=== PATIENT | male | born 1965 | race Caucasian/White ===

== ENCOUNTER → 2023-12-23 14:06 | Outpatient (BNVA) | payer MEDICAID, SELFPAY | PROVIDERS: Visit Provider Orthopaedic Surgery | DX: M54.9 Dorsalgia, unspecified (principal); Z76.89 Persons encountering health services in other specified circumstances | CPT/HCPCS: 36415; 80053; 83036; 85025; 99204 ==

== ENCOUNTER → 2024-01-07 10:15 | Outpatient (BNVA) | payer MEDICAID, SELFPAY | PROVIDERS: Visit Provider Family Medicine | DX: Z01.818 Encounter for other preprocedural examination (principal) | CPT/HCPCS: 81003; 93005 ==

== ENCOUNTER 2024-01-10 07:52 | Day surgery (SDC) | payer MEDICAID, SELFPAY ==
[2024-01-10] VITALS (12 sets, daily range): BP systolic 146–160; BP diastolic 78–101; PULSE 70–81; RESP 16–22; TEMP 36.5–36.9; O2SAT 92–99; BMI 25.7
--- NOTE | 2024-01-10 | XR_ITS ---
WS: [id number] XR lumbar spine 2-3V* [id number] REASON FOR EXAM: IVANIA PICS FINDINGS: Dorsal column stimulator which extends posteriorly in the midline in the thoracic spinal canal from T 11 to mid T8. XR/XR lumbar spine 2-3V* [id number] IMPRESSION: Dorsal column stimulator placement with appropriate position.
[2024-01-10] MEDS: sodium chloride 0.9% 1,000 ML 30 ML IV (08:47)
[2024-01-10 08:49] LABS: Glucose Point of Care 172 mg/dL (70-110)
[2024-01-10] MEDS: famotidine 20 mg/2 mL INJ IVP (08:56)
--- NOTE | 2024-01-10 09:03 | ANES.PREANE2 ---
Pre-Anesthetic Assessment Height/Weight: Height 1.83 m Weight 86.183 kg Temp Pulse Resp BP Pulse Ox O2 Del Method 98.4 F 75 18 158/101 99 Room Air 01/10/24 08:22 01/10/24 08:22 01/10/24 08:22 01/10/24 08:22 01/10/24 08:22 01/10/24 08:28 Preop Diagnosis: Lumbar stenosis with neurogenic claudication Operation Date: 01/10/24 09:35 Proposed Procedures p Paddle Electrode Placement(Not Applicable) - Drew Crowe DO s Spinal Cord Stimulator Placement(Not Applicable) - Drew Crowe DO Familial anesthetic complications: None Was Beta Arias taken within 24 hours: Yes Was Clonidine taken within 24 hours: N/A Last intake: Intake Last Liquid Date 01/09/24 Last Liquid Time 19:00 Last Solid Date 01/09/24 Last Solid Time 19:00 Social No alcohol and No tobacco Exam alert, oriented x 3, clear to auscultation bilaterally and regular rate & rhythm Airway Mallampati: Class II Dentition: full CV/HEM Coronary Artery Disease (PCI 2021) and Hypertension Metabolic Diabetes Mellitus and Hyperlipidemia Neuropsych Neuropathy Anesthetic Plan ASA status: 3 Anesthesia: General Risk of > 500 ml blood loss (7ml/kg in children): No Medications/Allergies Home Medications Medication Instructions Recorded Confirmed Last Taken Type albuterol sulfate 90 mcg/actuation 2 puff inhalation Q6H PRN sob 12/23/23 01/07/24 Unknown History aerosol inhaler amitriptyline 50 mg tablet 50 mg PO DAILY 12/23/23 01/07/24 01/05/24 History amlodipine 10 mg tablet 10 mg PO DAILY 12/23/23 01/07/24 01/06/24 History blood-glucose sensor (Dexcom G7 12/23/23 12/23/23 Unknown History Sensor device) carvedilol 25 mg tablet 25 mg PO Q12H 12/23/23 01/07/24 01/10/24 History clonidine HCl 0.1 mg tablet 0.1 mg PO TID 12/23/23 01/07/24 Unknown History clopidogrel 75 mg tablet 75 mg PO DAILY 12/23/23 01/07/24 01/02/24 History evolocumab 140 mg/mL subcutaneous 140 mg SUBCUT .[id number] 12/23/23 01/07/24 01/05/24 History pen injector (Susan Frida) hydralazine 25 mg tablet 25 mg PO TID 12/23/23 01/07/24 01/06/24 History insulin aspart U-100 100 unit/mL 10 unit SUBCUT TID 12/23/23 01/07/24 01/06/24 History subcutaneous solution isosorbide mononitrate 30 mg 30 mg PO DAILY 12/23/23 01/07/24 01/06/24 History tablet,extended release 24 hr methocarbamol 500 mg tablet 500 mg PO TID 12/23/23 01/07/24 01/06/24 History nitroglycerin 0.4 mg sublingual 0.4 mg sublingual Q5M PRN Chest 12/23/23 01/07/24 Unknown History tablet Pain omeprazole 20 mg capsule,delayed 20 mg PO DAILY 12/23/23 01/07/24 01/06/24 History release pregabalin 100 mg capsule 100 mg PO TID 12/23/23 01/07/24 01/06/24 History tamsulosin 0.4 mg capsule 0.4 mg PO DAILY 12/23/23 01/07/24 01/06/24 History tramadol 50 mg tablet 50 mg PO Q8H PRN Pain 12/23/23 01/07/24 01/06/24 History trazodone 100 mg tablet 100 mg PO DAILY 12/23/23 01/07/24 01/05/24 History cholecalciferol (vitamin D3) 50 50 mcg PO DAILY 01/06/24 01/07/24 01/06/24 History mcg (2,000 unit) tablet (Vitamin D3) insulin glargine 100 unit/mL (3 35 unit SUBCUT QPM 01/06/24 01/07/24 01/05/24 History mL) subcutaneous pen (Lantus Solostar U-100 Insulin) [id number]-dsqhds 1 tab PO DAILY 01/06/24 01/07/24 01/06/24 History tablet (Multivitamin 50 Plus tablet) aspirin 81 mg tablet,delayed 81 mg PO DAILY 01/07/24 01/07/24 Unknown History release vitamin B complex 1 cap PO DAILY 01/07/24 01/07/24 Unknown History Allergies Allergy/AdvReac Type Severity Reaction Status Date / Time codeine Allergy Intermediate ADR-Itching Verified 01/07/24 10:58 [From Tylenol-Codeine] hydrocodone Allergy Intermediate ADR-Itching Verified 01/07/24 10:58 Orotbwz-YPP-JlO Reductase Allergy ADR-Itching Verified 01/07/24 10:58 Inhibitor Current Medications Generic Name Dose Route Start Last Admin Trade Name Freq PRN Reason Stop Dose Admin Sodium Chloride 1,000 mls @ 30 mls/hr 01/10/24 08:00 01/10/24 08:47 Sodium Chloride 0.9% IV 01/11/24 07:59 30 mls/hr .Q24H MANNY Administration PFSH Anesthesia Social History Smoking and tobacco/nicotine status: never used tobacco/nicotine Data Anesthesia Cardiac Studies: No Data to Display
[2024-01-10] MEDS: fentaNYL 50 mcg/mL INJ 2mL IVP ×3 (09:06→12:03)
--- NOTE | 2024-01-10 09:40 | W.PM.OPSUD ---
Surgery/Procedure H&P Update DATE OF PROCEDURE: January 10, 2024 DATE H&P PERFORMED: 01/07/24 H&P UPDATE INFORMATION: I have reviewed H&P completed within last 30 days, I have examined patient prior to procedure and No changes to prior documentation PREOP DIAGNOSIS: Lumbar stenosis with neurogenic claudication PLANNED PROCEDURE: Operation Date: 01/10/24 09:35 Proposed Procedures p Paddle Electrode Placement(Not Applicable) - Drew Crowe DO s Spinal Cord Stimulator Placement(Not Applicable) - Drew Crowe DO
[2024-01-10] MEDS: ceFAZolin 2,000 mg SDV 2000 MG IVP (10:06)
[2024-01-10] MEDS: lidocaine-epi 1% 20 mL INJ INJECTION (11:03)
--- NOTE | 2024-01-10 11:52 | P.OP_ITS ---
Operative Report Date of procedure: January 10, 2024 Pre-op diagnosis: Lumbar stenosis with neurogenic claudication Post-op diagnosis: same Procedure done: 1. Neurostimulator paddle placement with laminectomy 2. Neurostimulator generator placement Surgeon: Drew Crowe DO Estimated blood loss (mL): 10 Procedure: 1. Neurostimulator paddle placement with laminectomy 2. Neurostimulator generator placement Patient brought the op suite after undergoing anesthesia placed in the prone po sition. All areas impingement well-padded. Patient was then prepped and draped normal sterile fashion. Skin incisions made over the T10-11 level. Subperiosteal dissection was made out to the transverse processes of T10-T11 bilaterally. Retractors were placed. Microscope was brought in. Rongeur bit down the interspinous ligament. As well as part of the T10 spinous process. Laminectomy was performed with a high-speed bur curved curettes and Kerrison rongeurs. Ligamentum flavum was taken down with the curved curette and ligamentum flavum. The hockey-stick passer was used to make a path. And then the neurostimulator paddle was slid up to the T8 body. This confirmed number C- arm guidance on both AP lateral fluoroscopy. Wires were sutured into the spinous process of T11. Next attention was made to the battery pocket. This was done by making incision during a subcu and undermining to allow for placement the battery. Once the pocket was made in the wire passer was slid from the battery pouch to the laminectomy site. The wires were passed and then connected to the battery and was found to be working well. Battery was then placed into the pouch. On the left flank. And wound was closed with 2-0 Vicryl and Monocryl suture. Sterile dressings were applied the laminectomy site was closed with 0 Vicryl 2-0 Vicryl and Monocryl suture. Sterile dressings were applied patient was then transferred to the PACU in stable condition.
[2024-01-10] MEDS: oxyCODONE 5 mg IR Tab/Cap PO (13:04)
--- NOTE | 2024-01-10 13:20 | ANE.PACU2 ---
Inpatient post-anesthesia follow up: Airway intact: Yes Vital signs: Temperature 98 F Pulse Rate 76 Respiratory Rate 18 Blood Pressure 153/89 Pulse Oximetry 97 Oxygen Delivery Me thod Room Air Oxygen Flow Rate Fraction of Inspir ed Oxygen Hydration adequate: Yes Nausea and vomiting: No Pain level: 1 Mental status: Baseline
== END 2024-01-10 13:20 | disposition home or self-care (01) ==
PROVIDERS: PCP Family Medicine; Visit Provider Orthopaedic Surgery
PROC: (CPT 63664; principal; 2024-01-10 09:25)
PROC: (CPT 63685; 2024-01-10 09:25)
DX: M48.062 Spinal stenosis, lumbar region with neurogenic claudication (principal); I25.10 Atherosclerotic heart disease of native coronary artery without angina pectoris; I10 Essential (primary) hypertension; E78.5 Hyperlipidemia, unspecified; E11.40 Type 2 diabetes mellitus with diabetic neuropathy, unspecified
CPT/HCPCS: 63655; 63685; 36416; 72100; 76000; 82962; C1713; C1820; J0330; J0690; J1100; J2250; J2405; J2704; J3010; J3490; J7030

== ENCOUNTER → 2024-05-25 14:11 | Outpatient (BNVA) | payer MEDICAID, SELFPAY | PROVIDERS: PCP Family Medicine; Visit Provider Orthopaedic Surgery | DX: Z01.818 Encounter for other preprocedural examination (principal); Z48.89 Encounter for other specified surgical aftercare | CPT/HCPCS: 36415; 72072; 72100; 80053; 81001; 83036; 85025; 99214 ==

== ENCOUNTER 2024-06-21 09:36 | Day surgery (SDC) | payer MEDICAID, SELFPAY ==
[2024-06-21] VITALS (11 sets, daily range): BP systolic 121–147; BP diastolic 62–95; PULSE 71–86; RESP 15–18; TEMP 36.1–36.8; O2SAT 96–100; BMI 25.7
--- NOTE | 2024-06-21 08:57 | P.ANESASSM_ITS ---
Pre-Anesthetic Assessment Height/Weight: Height 1.83 m Operation Date: 06/21/24 11:15 Proposed Procedures p Removal Of Stimulator Paddle and Generator(Not Applicable) - Drew Crowe, DO Familial anesthetic complications: none Was Beta Arias taken within 24 hours: Yes Was Clonidine taken within 24 hours: N/A Social Tobacco and No alcohol Exam alert, oriented x 3 and regular rate & rhythm Airway Submandibular: within normal limits Cervical ROM: within normal limits Mallampati: Class II Pulmonary Chronic Obstructive Pulmonary Disease CV/HEM Coronary Artery Disease and Hypertension GI Gastroesophageal Reflux Disease Metabolic Diabetes Mellitus [facility] [place] Lower Back Pain Neuropsych Chronic pain Anesthetic Plan ASA status: 3 Anesthesia: General Medications/Allergies Home Medications ?Medication ?Instructions ?Recorded ?Confirmed ?Last Taken ?Type albuterol sulfate 90 mcg/actuation 2 puff inhalation Q 6H PRN sob 12/23/23 06/20/24 Unknown History aerosol inhaler amlodipine 10 mg tablet 10 mg PO DAILY 12/23/2306/0606/20/24 History blood-glucose sensor (Dexcom G7 12/23/23 05/25/24 Loren beard History Sensor device) carvedilol 25 mg tablet 25 mg PO Q12H 12/23/2306/2006/20/24 History clonidine HCl 0.1 mg tablet 0.1 mg PO TID 12/23/23 Unknown History clopidogrel 75 mg tablet 75 mg PO DAILY 12/23/2306/0606/16/24 History evolocumab 140 mg/mL subcutaneous 140 mg SUBCUT .Q2WEE [place] 12/23/23 06/20/24 06/13/24 History pen injector (Susan Galicia) hydralazine 25 mg tablet 25 mg PO TID 12/23/2306/20/24 History insulin aspart U-100 100 unit/mL 10 unit SUBCUT TID 06/20/24 06/20/24 History subcutaneous solution isosorbide mononitrate 30 mg 30 mg PO DAILY 12/23/23 0 06/20/24 06/20/24 History tablet,extended release 24 hr nitroglycerin 0.4 mg sublingual 0.4 mg sublingual Q5M PRN Chest 12/23/23 06/20/24 Unknown History tablet Pain omeprazole 20 mg capsule,delayed 20 mg PO DAILY 06/20/24 06/20/24 History release pregabalin 100 mg capsule 100 mg PO TID 12/23/2306/2006/20/24 History tamsulosin 0.4 mg capsule 0.4 mg PO DAILY 12/23/2306/20/24 History trazodone 100 mg tablet 100 mg PO DAILY 12/23/2306/20/24 History cholecalciferol (vitamin D3) 50 50 mcg PO DAILY 06/20/24 06/20/24 History mcg (2,000 unit) tablet (Vitamin D3) insulin glargine 100 unit/mL (3 35 unit SUBCUT QPM 06/20/24 06/19/24 History mL) subcutaneous pen (Lantus Solostar U-100 Insulin) [id number]-yqwnjswn-uepmmi 1 tab PO DAILY 01/06/24 0 06/20/24 06/20/24 History tablet (Multivitamin 50 Plus tablet) aspirin 81 mg tablet,delayed 81 mg PO DAILY 01/07/24 0 06/20/24 06/16/24 History release Held on 01/10/24. Instructions: Resume on 01/12/24. vitamin B complex 1 cap PO DAILY 01/07/2406/0606/20/24 History cyclobenzaprine 10 mg tablet 10 mg PO TID PRN muscle s pasm 14 05/03/24 06/20/24 06/18/24 Rx days #42 tabs tramadol 50 mg tablet 50 mg PO BID PRN Pain 06/20/24 06/20/24 History Allergies Allergy/AdvReac Type Severity Reaction Status Date / Time codeine (From Allergy Intermediate ADR-Itching Verified 05/25/24 14:26 Tylenol-Codeine) hydrocodone Allergy Intermediate ADR-Itching Verified 05/25/24 14:26 Zvlpvtl-SPA-EuY Reductase Allergy ADR-Itching Verified 05/25/24 14:26 Inhibitor PFS Anesthesia Social History Smoking and tobacco/nicotine status: never used tobacco/nicotine Data Anesthesia Cardiac Studies: No Data to Display
--- NOTE | 2024-06-21 08:57 | ANES.PREANE2 ---
Pre-Anesthetic Assessment Height/Weight: Height 1.83 m Operation Date: 06/21/24 11:15 Proposed Procedures p Removal Of Stimulator Paddle and Generator(Not Applicable) - Drew Crowe, DO Familial anesthetic complications: none Was Beta Arias taken within 24 hours: Yes Was Clonidine taken within 24 hours: N/A Social Tobacco and No alcohol Exam alert, oriented x 3 and regular rate & rhythm Airway Submandibular: within normal limits Cervical ROM: within normal limits Mallampati: Class II Pulmonary Chronic Obstructive Pulmonary Disease CV/HEM Coronary Artery Disease and Hypertension GI Gastroesophageal Reflux Disease Metabolic Diabetes Mellitus [facility] [place] Pain Neuropsych Chronic pain Anesthetic Plan ASA status: 3 Anesthesia: General Medications/Allergies Home Medications ?Medication ?Instructions ?Recorded ?Confirmed ?Last Taken ?Type albuterol sulfate 90 mcg/actuation 2 puff inhalation Q6H PRN sob 12/23/23 06/20/24 Unknown History aerosol inhaler amlodipine 10 mg tablet 10 mg PO DAILY 12/23/23 06/20/24 06/20/24 History blood-glucose sensor (Dexcom G7 12/23/23 05/25/24 Unknown History Sensor device) carvedilol 25 mg tablet 25 mg PO Q12H 12/23/23 06/20/24 06/20/24 History clonidine HCl 0.1 mg tablet 0.1 mg PO TID 12/23/23 06/20/24 Unknown History clopidogrel 75 mg tablet 75 mg PO DAILY 12/23/23 06/20/24 06/16/24 History evolocumab 140 mg/mL subcutaneous 140 mg SUBCUT .[id number] 12/23/23 06/20/24 06/13/24 History pen injector (Susan Galicia) hydralazine 25 mg tablet 25 mg PO TID 12/23/23 06/20/24 06/20/24 History insulin aspart U-100 100 unit/mL 10 unit SUBCUT TID 12/23/23 06/20/24 06/20/24 History subcutaneous solution isosorbide mononitrate 30 mg 30 mg PO DAILY 12/23/23 06/20/24 06/20/24 History tablet,extended release 24 hr nitroglycerin 0.4 mg sublingual 0.4 mg sublingual Q5M PRN Chest 12/23/23 06/20/24 Unknown History tablet Pain omeprazole 20 mg capsule,delayed 20 mg PO DAILY 12/23/23 06/20/24 06/20/24 History release pregabalin 100 mg capsule 100 mg PO TID 12/23/23 06/20/24 06/20/24 History tamsulosin 0.4 mg capsule 0.4 mg PO DAILY 12/23/23 06/20/24 06/20/24 History trazodone 100 mg tablet 100 mg PO DAILY 12/23/23 06/20/24 06/20/24 History cholecalciferol (vitamin D3) 50 50 mcg PO DAILY 01/06/24 06/20/24 06/20/24 History mcg (2,000 unit) tablet (Vitamin D3) insulin glargine 100 unit/mL (3 35 unit SUBCUT QPM 01/06/24 06/20/24 06/19/24 History mL) subcutaneous pen (Lantus Solostar U-100 Insulin) [id number]-djcxyafa-riuekq 1 tab PO DAILY 01/06/24 06/20/24 06/20/24 History tablet (Multivitamin 50 Plus tablet) aspirin 81 mg tablet,delayed 81 mg PO DAILY 01/07/24 06/20/24 06/16/24 History release Held on 01/10/24. Instructions: Resume on 01/12/24. vitamin B complex 1 cap PO DAILY 01/07/24 06/20/24 06/20/24 History cyclobenzaprine 10 mg tablet 10 mg PO TID PRN muscle spasm 14 05/03/24 06/20/24 06/18/24 Rx days #42 tabs tramadol 50 mg tablet 50 mg PO BID PRN Pain 06/20/24 06/20/24 06/20/24 History Allergies Allergy/AdvReac Type Severity Reaction Status Date / Time codeine (From Allergy Intermediate ADR-Itching Verified 05/25/24 14:26 Tylenol-Codeine) hydrocodone Allergy Intermediate ADR-Itching Verified 05/25/24 14:26 Skiaecn-PPH-NvY Reductase Allergy ADR-Itching Verified 05/25/24 14:26 Inhibitor PFSH Anesthesia Social History Smoking and tobacco/nicotine status: never used tobacco/nicotine Data Anesthesia Cardiac Studies: No Data to Display
--- NOTE | 2024-06-21 10:00 | W.PM.OPSUD ---
Surgery/Procedure H&P Update DATE OF PROCEDURE: June 21, 2024 DATE H&P PERFORMED: 05/25/24 H&P UPDATE INFORMATION: I have reviewed H&P completed within last 30 days, I have examined patient prior to procedure and No changes to prior documentation PREOP DIAGNOSIS: Nonworking neurostimulator PLANNED PROCEDURE: Operation Date: 06/21/24 11:15 Proposed Procedures p Removal Of Stimulator Paddle and Generator(Not Applicable) - Drew Crowe, DO
[2024-06-21] MEDS: sodium chloride 0.9% 1,000 ML 30 ML IV (10:04)
[2024-06-21 10:11] LABS: Glucose Point of Care 190 mg/dL (70-110)
[2024-06-21] MEDS: ceFAZolin 2,000 mg SDV 2000 MG IVP (11:20)
[2024-06-21] MEDS: lidocaine-epi 1% 20 mL INJ 10 ML INJECTION (12:03)
[2024-06-21] MEDS: VANCOMYCIN ADD-Vantage 1,000 MG VIAL 1000 MG XX (12:03)
--- NOTE | 2024-06-21 12:53 | P.OP_ITS ---
Operative Report Date of procedure: June 21, 2024 Pre-op diagnosis: Nonworking neurostimulator Post-op diagnosis: same Procedure done: 1. Removal of neurostimulator paddle 2. Removal of neurostimulator battery/generator Surgeon: Drew Crowe DO Estimated blood loss (mL): 15 Procedure: 1. Removal of neurostimulator paddle 2. Removal of neurostimulator battery/generator Patient is brought to the operative suite after undergoing anesthesia was placed in the prone position. All areas of impingement were well-padded. Patient's prepped draped in sterile fashion. Attention was brought to the InterStim a paddle for skin incision was made over the previous vision where the neuros timulator paddle was located. Dissection was made down wires were identified. Wires were followed down through the scar tissue. Curettes were used to free up the scar tissue. Microscope was brought in laminectomy was further done with a high-speed bur curved curettes and Kerrison rongeur. The scar tissue was peeled off of the paddle and then the paddle was removed. Next tension was brought to removing the neurostimulator generator. Skin incisions made over the pocket of tissue that was made for the generator. The generator is identified. And pulled out of the pocket. The wires were cut where the paddle was and then wires were pulled through the skin and wounds were then irrigated pink powder was used and wounds were closed in layered fashion with 0 Vicryl 2-0 Vicryl and Monocryl suture. Sterile dressings were applied and patient transferred the PACU in stable condition.
[2024-06-21] MEDS: HYDROmorphone 1 mg/mL INJ 1ml 0.25 MG IVP (13:42)
--- NOTE | 2024-06-21 13:44 | XR_ITS ---
WS: [id number] Lumbar spine, C-arm fluoroscopy views, 06/21/2024 Clinical Data: Removal of neurostimulator paddle Comparison: Lumbar spine, 05/25/2024 Findings: Dr. Crowe removed the neurostimulator wires from the thoracic epidural space. XR/XR lumbar spine 2-3V* [id number] Impression: Removal of neurostimulator wires from the thoracic epidural space.
--- NOTE | 2024-06-21 13:49 | PC.NURSE ---
1342 - pt complaining of spasms in lower abdomen and upper legs bilaterally. complaining of legs so tight
[2024-06-21] MEDS: midazolam 1 mg/mL INJ 2 mL 2 MG IVP (14:05)
--- NOTE | 2024-06-21 14:15 | ANE.PACU2 ---
Inpatient post-anesthesia follow up: Airway intact: Yes Vital signs: Temperature 97 F Pulse Rate 71 Respiratory Rate 18 Blood Pressure 121/94 Pulse Oximetry 98 Oxygen Delivery Me thod Room Air Oxygen Flow Rate Fraction of Inspir ed Oxygen Hydration adequate: Yes Nausea and vomiting: No Pain level: 4 Mental status: Baseline
--- NOTE | 2024-06-21 14:16 | PC.NURSE ---
pt states versed helped some. pt not as tense and states pain is 7/10 now. pt lying on right side. spouse at bedside.
--- NOTE | 2024-06-21 15:00 | PC.NURSE ---
1402 - Dr. Crowe notified of pt adverse reaction to hydrocodone. pt is taking tramadol at home. pt instructed to call office if tramadol doesn't work.
== END 2024-06-21 14:48 | disposition home or self-care (01) ==
PROVIDERS: PCP Family Medicine; Visit Provider Orthopaedic Surgery
PROC: (CPT 63688; principal; 2024-06-21 11:15)
DX: Z45.42 Encounter for adjustment and management of neurostimulator (principal); J44.9 Chronic obstructive pulmonary disease, unspecified; I25.10 Atherosclerotic heart disease of native coronary artery without angina pectoris; E11.9 Type 2 diabetes mellitus without complications; I10 Essential (primary) hypertension; K21.9 Gastro-esophageal reflux disease without esophagitis; Z79.899 Other long term (current) drug therapy; Z79.82 Long term (current) use of aspirin; Z79.4 Long term (current) use of insulin; Z79.02 Long term (current) use of antithrombotics/antiplatelets; Z88.5 Allergy status to narcotic agent; Z88.8 Allergy status to other drugs, medicaments and biological substances
CPT/HCPCS: 63688; 63661; 36416; 72100; 76000; 82962; J0690; J1171; J2250; J2405; J2704; J2710; J3010; J3370; J3490; J7030; J9999

== ENCOUNTER → 2024-08-01 15:11 | Outpatient (BNVA) | payer MEDICAID, SELFPAY | PROVIDERS: PCP Family Medicine; Visit Provider Orthopaedic Surgery | DX: Z48.89 Encounter for other specified surgical aftercare (principal) | CPT/HCPCS: 99024 ==

== ENCOUNTER → 2025-02-22 13:20 | Outpatient (BNVA) | payer MEDICAID, SELFPAY | PROVIDERS: PCP Family Medicine; Visit Provider Orthopaedic Surgery | DX: Z01.818 Encounter for other preprocedural examination (principal); M50.023 Cervical disc disorder at C6-C7 level with myelopathy | CPT/HCPCS: 72050; 80053; 81001; 85025; 99214 ==